=== PATIENT | female | born 1950 ===

== ENCOUNTER 2019-02-11 07:16 | Day surgery (SDC) | payer MEDICARE ==
--- NOTE | 2019-01-23 08:07 | HP ---
PREOPERATIVE HISTORY AND PHYSICAL: ADDENDUM: In regard to the patient's seizure disorder, it is well controlled with her medications carbamazepine 200 mg daily and phenobarbital 64.8 mg daily. She is currently followed by her primary care physician and does not see a neurologist. She reports that she has not had a grand mal seizure since age 26. She occasionally gets mild, what sounds like absence seizures once a month or sometimes up to 4 months will go in between these more mild seizures. She says that they last approximately a few seconds. We will have the patient obtain clearance from her primary care physician prior to proceeding with surgery. SIMBA OSUNA [id number]/[facility] #: [id number] YUNI
--- NOTE | 2019-01-23 08:07 | HP ---
ADDENDUM NOW INCLUDED ON THIS REPORT PREOPERATIVE HISTORY AND PHYSICAL: DATE OF SURGERY/ADMISSION: 02/11/19 DATE OF OFFICE VISIT/ENCOUNTER: 01/22/19 ATTENDING SURGEON: Mala Rodney MD.* (DICTATED BY SIMBA OSUNA) PROCEDURE: Left ring finger Dupuytren excision. HISTORY OF PRESENT ILLNESS: This is a 68-year-old female who complains of a cord that is causing contracture of her left ring finger. She says that has gradually worsened over time. It is quite painful because her ring sits right on top of it. The pain wakes her at night oftentimes. She denies any numbness or tingling. She does not recall any specific injury. This is her nondominant hand. After evaluation by Dr. Rodney, she has consented to proceed with surgical intervention for this contracture. PAST MEDICAL HISTORY: Seizure disorder. PAST SURGICAL HISTORY: 1. . 2. Hysterectomy. CURRENT MEDICATIONS: 1. Carbamazepine 200 mg daily. 2. Phenobarbital 64.8 mg daily. 3. Tums p.r.n. ALLERGIES: No known drug allergies. Tape causes skin irritation. FAMILY MEDICAL HISTORY: Noncontributory. SOCIAL HISTORY: The patient is retired. 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 She is a former smoker. She quit 40 years ago. Prior to that, she smoked for approximately 10 years up to a pack per day. She denies recreational drug use. She does not drink alcohol. REVIEW OF SYSTEMS: Negative for general, cephalic, cardiovascular, respiratory , GI, , other musculoskeletal, integumentary, endocrine, neurologic and hematologic symptoms. Infectious Disease: Negative for MRSA, hepatitis C, HIV. PHYSICAL EXAMINATION GENERAL: Well-developed, well-nourished 68-year-old female, in no acute distress. VITAL SIGNS: Height 5 feet 1 inch, weight 182 pounds. Pulse rate 75, blood pressure 136/82. HEENT: Normocephalic, atraumatic. Pupils are equal, round, and reactive to light and accommodation. Extraocular movements are intact. NECK: Supple. No palpable lymph nodes. Throat is clear. PULMONARY: Lungs are clear to auscultation bilaterally. No wheezes, rales, or rhonchi. CARDIOVASCULAR: Regular rate and rhythm. S1, S2. No murmurs, rubs, or gallops. No edema. ABDOMEN: Positive bowel sounds. Soft and nontender. MUSCULOSKELETAL: On exam of her left hand, she has a Dupuytren cord in line with her left ring finger that has a large nodule at the MP flexion crease. She has about a 30-degree MP contracture. No PIP contracture. She also has a Dupuytren cord in the first webspace, but no associated contracture. She can make a full fist. Neurovascular function is intact. Skin is intact. NEUROLOGIC: Alert and oriented x3. Cranial nerves II through XII are intact. Sensation is intact to light touch. IMPRESSION: Dupuytren disease, left hand. PLAN: The patient is scheduled to undergo a left ring finger Dupuytren excision with Dr. Rodney on 02/11/19. She will return to the office 10 to 14 days postop for followup and possible suture removal. A prescription for [place] was e-scribed to the patient's pharmacy for postoperative pain management. SIMBA OSUNA ADDENDUM: In regard to the patient's seizure disorder, it is well controlled with her medications carbamazepine 200 mg daily and phenobarbital 64.8 mg daily. She is currently followed by her primary care physician and does not see a neurologist. She reports that she has not had a grand mal seizure since age 26. She occasionally gets mild, what sounds like absence seizures once a month or sometimes up to 4 months will go in between these more mild seizures. She says that they last approximately a few seconds. We will have the patient obtain clearance from her primary care physician prior to proceeding with surgery. SIMBA OSUNA [id number]/[facility] #: [id number]/[facility] #: [id number] YUNI
[~2019-02-11 07:16] MED LIST: Buffered Lidocaine 1% SYRIN* 1 ML/SYRINGE INTRADERM ONE; Lactated Ringers 1000 ML Bag* 1,000 ML IV SCH
[2019-02-11] MEDS ORDERED: ceFAZolin 2 GM in NS PREMIX(*) 2 GM/100 ML BAG IVPB ONE (07:29)
[2019-02-11] MEDS ORDERED: Ondansetron INJ* 2 MG/ML VIAL IV PRN (08:27)
[2019-02-11] MEDS ORDERED: Naloxone* 0.4 MG/ML 1 ML VIAL IV PRN (08:27)
[2019-02-11] MEDS ORDERED: fentaNYL* 50 MCG/ML 2 ML VIAL (100 MCG VIAL) ONE (08:35)
[2019-02-11] MEDS ORDERED: Midazolam* 1 MG/ML 2 ML VIAL (2 MG) ONE (08:36)
[2019-02-11] MEDS ORDERED: Lidocaine 1% INJ* 10 MG/ML 30 ML SDV ONE (08:52)
[2019-02-11] MEDS ORDERED: Lidocaine 2% PF * 5 ML VIAL ONE (09:38)
[2019-02-11] MEDS ORDERED: Propofol* 10 MG/ML 20 ML BTL ONE (09:38)
[2019-02-11 10:42] VITALS: BP 134/68
--- NOTE | 2019-02-11 12:35 | OP ---
DATE OF OPERATION: 02/11/19 [facility] DATE OF : 46 SURGEON: Mala Rodney MD LEAD HOUSEKEEPER: SIMBA Edwards ANESTHESIA: Local, MAC. PRE-OP DIAGNOSIS: Left ring finger Dupuytren's contracture. POST-OP DIAGNOSIS: Left ring finger Dupuytren's contracture. OPERATIVE PROCEDURE: Removal of Dupuytren's contracture, left ring finger. ESTIMATED BLOOD LOSS: Zero. TOURNIQUET TIME: Approximately 30 minutes. INDICATIONS FOR PROCEDURE: Esther is a 68-year-old female who has a contracture of her left ring finger MP joint with a Dupuytren's cord, she presents for removal. DESCRIPTION OF PROCEDURE: The patient was brought to the operating room, was given a sedation anesthetic and a local infiltration with 10 cc of 1% plain lidocaine in the palm of her left hand. The skin of her left hand and forearm was prepped and draped in the usual sterile fashion. The hand and forearm were exsanguinated and the tourniquet elevated to 250 mmHg. Zig-zag incision was made over the Dupuytren's contracture and the skin flaps were elevated. The cord was removed in its entirety and this fully released the contracture. The digital neurovascular bundles were carefully protected during the procedure by the surgical nurse, Gale López, whose assistance was essential for safe completion of the case. The wound was irrigated and the skin edges were reapproximated with 4-0 nylon suture. The wound was dressed with Xeroform, 4x4 , Webril, and Coban. The patient tolerated the procedure well and was brought to the recovery room in good condition. [id number]/[facility] #: [id number] [facility]
== END 2019-02-11 10:27 | disposition home or self-care (01) ==
LOC: OREAST 07:16
PROVIDERS: ATTEND Orthopaedic Surgery
DX: M72.0 Palmar fascial fibromatosis [Dupuytren] (principal); Z87.891 Personal history of nicotine dependence; G40.89 Other seizures; K21.9 Gastro-esophageal reflux disease without esophagitis; F41.9 Anxiety disorder, unspecified; M19.90 Unspecified osteoarthritis, unspecified site; R03.0 Elevated blood-pressure reading, without diagnosis of hypertension
CPT/HCPCS: 88304; J0690; J2250; J2704; J3010